=== PATIENT | male | born 1930 | race Caucasian/White ===

== ENCOUNTER → 2017-09-05 | Outpatient (CLI) | payer MEDICARE, OTHER ==
[~2017-09-05] MED LIST: ACET325 PO; ACET325UDC; ACET500 PO; ALBU90OI INH; ASPI325 PO; ASPI81CH PO; Alavert D-12 A1 EACH PO; BENEFIBER1 EACH PO; BUPR150ER PO; CETI5 PO; CHOL10002 PO; CLOP75 PO; Calcium 1,2001 EACH PO; DONE5 PO; ESCI10 PO; FAMO10 PO; FERR325 PO; FIBE4P PO; FINA5 PO; FOLI1 PO; Flonase 0.05% N16 GM; Glucosamine 1,1 EACH PO; HYDR1TAB94 PO; Hair, Skin & N1 EACH PO; Keflex500 MG PO; LAVAP17G PO; LAXA CLEAR1530 GM PO; LISI5 PO; MEMA5TAB PO; METO25ER PO; MULVIT PO; NAPR220 PO; Norco 10-325 T1 EACH PO; OMEP20ER PO; OXYACE5T PO; PANT40 PO; PROBIOTIC1 EAC1 PO; ROSU5 PO; SENN187 PO; TAMS.4ER; TAMS.4ER PO; VENL75; VIIBRYD40 MG PO; Zithromax250 MG PO; Zofran Odt4 MG SL
[2017-09-05 11:03] LABS: Bilirubin, Urine Neg (Neg); Blood, Urine 2+ (Neg); Glucose Qualitative, Urine Neg (Neg); Ketones, Urine Neg (Neg); Leukocyte Esterase, Urine 3+ (Neg); Nitrite, Urine Neg (Neg); Protein, Urine 1+ (Neg); Source, Urine Clean Catch; Urobilinogen, Urine NORM (Normal)
[2017-09-05 12:13] LABS: Appearance, Urine Cloudy (Clear); Color, Urine Yellow (P-Yellow)
[2017-09-05 12:17] LABS: White Blood Cells, Urine TNTC /hpf (0-5)
[2017-09-05 12:18] LABS: Bacteria Many /hpf; Other Crystals Many /hpf; Renal Epithelial Rare /hpf (0-Rare); Squamous Epithelial Cells Not Seen /hpf (Few)
== END | disposition home or self-care (01) ==
LOC: LAB 10:44 → LAB SHORT 10:44
PROVIDERS: Internal Medicine
DX: N39.0 Urinary tract infection, site not specified (principal)
CPT/HCPCS: 81001; 87077; 87086; 87186

== ENCOUNTER → 2017-09-20 | Outpatient (CLI) | payer MEDICARE, OTHER ==
[2017-09-20 12:49] LABS: Source, Urine Catheter
[2017-09-20 13:03] LABS: Appearance, Urine Clear (Clear); Bilirubin, Urine Neg (Neg); Blood, Urine 1+ (Neg); Color, Urine Yellow (P-Yellow); Glucose Qualitative, Urine Neg (Neg); Ketones, Urine Neg (Neg); Leukocyte Esterase, Urine Neg (Neg); Nitrite, Urine Neg (Neg); Protein, Urine Neg (Neg); Urobilinogen, Urine NORM (Normal)
[2017-09-20 15:37] LABS: Bacteria Few /hpf; Squamous Epithelial Cells Few /hpf (Few)
== END ==
LOC: LAB 12:47 → LAB SHORT 12:47
PROVIDERS: Internal Medicine
DX: N39.0 Urinary tract infection, site not specified (principal)
CPT/HCPCS: 81001; 87086

== ENCOUNTER → 2017-10-20 | Outpatient (CLI) | payer MEDICARE, OTHER ==
[2017-10-22 10:29] LABS: Source, Urine Clean Catch
[2017-10-22 10:46] LABS: Bilirubin, Urine Neg (Neg); Blood, Urine 3+ (Neg); Glucose Qualitative, Urine Neg (Neg); Ketones, Urine Neg (Neg); Leukocyte Esterase, Urine 3+ (Neg); Nitrite, Urine Neg (Neg); Protein, Urine 2+ (Neg); Specific Gravity, Urine 1.015 (1.003-1.022); Urobilinogen, Urine NORM (Normal)
[2017-10-22 11:27] LABS: Appearance, Urine Turbid (Clear); Color, Urine Yellow (P-Yellow)
[2017-10-22 11:28] LABS: Triple Phosphate Crystals Mod /hpf
[2017-10-22 11:29] LABS: White Blood Cells, Urine 50-100 /hpf (0-5)
[2017-10-22 11:30] LABS: Amorphous Light (0-Heavy); Bacteria Rare /hpf; Squamous Epithelial Cells Few /hpf (Few)
== END ==
LOC: LAB 10:27 → LAB SHORT 10:27
PROVIDERS: Internal Medicine
DX: N39.0 Urinary tract infection, site not specified (principal)
CPT/HCPCS: 81001; 87077; 87086; 87186

== ENCOUNTER → 2017-12-06 | Outpatient (CLI) | payer MEDICARE, OTHER ==
[2017-12-06 11:39] LABS: Source, Urine Clean Catch
[2017-12-06 12:38] LABS: Bilirubin, Urine Neg (Neg); Blood, Urine 2+ (Neg); Glucose Qualitative, Urine Neg (Neg); Ketones, Urine Neg (Neg); Leukocyte Esterase, Urine 3+ (Neg); Nitrite, Urine Pos (Neg); Protein, Urine 1+ (Neg); Urobilinogen, Urine NORM (Normal); pH, Urine 6.5 (5.0-8.0)
[2017-12-06 12:56] LABS: Appearance, Urine Hazy (Clear); Color, Urine Yellow (P-Yellow)
[2017-12-06 12:57] LABS: Squamous Epithelial Cells Few /hpf (Few); White Blood Cells, Urine TNTC /hpf (0-5)
[2017-12-06 12:58] LABS: Bacteria Many /hpf
== END | disposition home or self-care (01) ==
LOC: LAB SHORT 11:37 → LAB 11:37
PROVIDERS: Internal Medicine
DX: N39.0 Urinary tract infection, site not specified (principal)
CPT/HCPCS: 81001; 87077; 87086; 87186

== ENCOUNTER 2018-08-12 11:54 | Emergency (ER) | payer MEDICARE, OTHER ==
[~2018-08-12] VITALS: Ht 177.8 cm; Wt 72.6 kg
[~2018-08-12 11:54] MED LIST changes: +Budeprion Xl300 MG PO; +Cranberry500 MG PO; +DOCU100 PO; +DONE10 PO; +Pedi-Dri 100,0060 GM TOP; +[UNRECOGNIZED DRUG - CODE] PO; +[UNRECOGNIZED DRUG - CODE] PO; +[UNRECOGNIZED DRUG - CODE] PO; +[UNRECOGNIZED DRUG - CODE] PO; +[UNRECOGNIZED DRUG - CODE] PO; +[UNRECOGNIZED DRUG - CODE] PO
[2018-08-12] MEDS ORDERED: Fleet Bisa10 MG/30 M RC (12:12)
[2018-08-12] MEDS ORDERED: Lisinopril2.5 MG (12:12)
[2018-08-12] MEDS ORDERED: BISA10S PR (12:12)
[2018-08-12] MEDS ORDERED: MYLANTA (12:13)
[2018-08-12] MEDS ORDERED: Milk Of Ma400 MG/5 M PO (12:13)
[2018-08-12] MEDS ORDERED: PINK BISMU PO (12:14)
[2018-08-12] MEDS ORDERED: HYDR1TAB94 PO (14:54)
[2018-08-14] MEDS ORDERED: HYDR1TAB94 PO (20:56)
== END 2018-08-12 15:14 | disposition home or self-care (01) ==
LOC: ER 11:54
DX: S20.212A Contusion of left front wall of thorax, initial encounter (principal); F32.9 Major depressive disorder, single episode, unspecified; F03.90 Unspecified dementia, unspecified severity, without behavioral disturbance, psychotic disturbance, mood disturbance, and anxiety; I10 Essential (primary) hypertension; E78.00 Pure hypercholesterolemia, unspecified; Z79.899 Other long term (current) drug therapy; Z79.82 Long term (current) use of aspirin; Z79.02 Long term (current) use of antithrombotics/antiplatelets; Z87.891 Personal history of nicotine dependence; W05.0XXA Fall from non-moving wheelchair, initial encounter
CPT/HCPCS: 36415; 71046; 93005; 93010; 99284-25

== ENCOUNTER → 2018-08-30 | Outpatient (CLI) | payer MEDICARE, OTHER ==
[~2018-08-30] MED LIST changes: +BISA10S PR; +Fleet Bisa10 MG/30 M RC; +Lisinopril2.5 MG; +MYLANTA; +Milk Of Ma400 MG/5 M PO; +PINK BISMU PO
[2018-08-30 12:05] LABS: Bilirubin, Urine Neg (Neg); Blood, Urine 3+ (Neg); Glucose Qualitative, Urine Neg (Neg); Ketones, Urine Neg (Neg); Leukocyte Esterase, Urine 3+ (Neg); Nitrite, Urine Neg (Neg); Protein, Urine 2+ (Neg); Urobilinogen, Urine NORM (Normal)
[2018-08-30 12:37] LABS: Appearance, Urine Cloudy (Clear); Color, Urine Yellow (P-Yellow)
[2018-08-30 12:38] LABS: Bacteria Many /hpf; Squamous Epithelial Cells Few /hpf (Few); White Blood Cells, Urine TNTC /hpf (0-5)
== END | disposition home or self-care (01) ==
LOC: LAB 11:40 → LAB SHORT 11:40
PROVIDERS: Internal Medicine
DX: N39.0 Urinary tract infection, site not specified (principal)
CPT/HCPCS: 81001; 87077; 87086; 87186

== ENCOUNTER → 2018-09-09 | Outpatient (CLI) | payer MEDICARE, OTHER ==
[2018-09-10 12:16] LABS: Bilirubin, Urine Neg (Neg); Blood, Urine 1+ (Neg); Glucose Qualitative, Urine Neg (Neg); Ketones, Urine Neg (Neg); Leukocyte Esterase, Urine 3+ (Neg); Nitrite, Urine Neg (Neg); Protein, Urine 1+ (Neg); Specific Gravity, Urine 1.025 (1.003-1.022); Urobilinogen, Urine NORM (Normal)
[2018-09-10 13:19] LABS: Appearance, Urine Clear (Clear); Color, Urine Yellow (P-Yellow)
[2018-09-10 13:22] LABS: Bacteria Not Seen /hpf; Calcium Oxalate Crystals Few /hpf; Red Blood Cells, Urine 0-2 /hpf (0-2); Squamous Epithelial Cells Few /hpf (Few)
== END | disposition home or self-care (01) ==
LOC: LAB SHORT 20:00 → LAB 20:00
PROVIDERS: Internal Medicine
DX: N39.0 Urinary tract infection, site not specified (principal)
CPT/HCPCS: 81001

== ENCOUNTER 2018-10-18 21:22 | Inpatient (IN) | payer MEDICARE, OTHER ==
[~2018-10-18] VITALS: Ht 177.8 cm; Wt 90.1 kg
[~2018-10-18 21:22] MED LIST changes: -ACET325 PO; +Antacid Maximu355 ML PO; -Lisinopril2.5 MG; +Lisinopril2.5 MG PO; -MYLANTA
[2018-10-18 22:17] LABS: BASOPHILS ABSOLUTE AUTO 0.03 K/mm3 (0.00-0.23); BASOPHILS PERCENT AUTO 0 % (0-2); EOSINOPHILS ABSOLUTE AUTO 0.38 K/mm3 (0.00-0.68); EOSINOPHILS PERCENT AUTO 3 % (0-6); Hematocrit 43.1 % (37.0-53.0); Hemoglobin 13.9 g/dL (13.5-17.5); IMMATURE GRAN ABSOLUTE AUTO 0.05 K/mm3 (0.00-0.10); IMMATURE GRAN PERCENT AUTO 0 % (0-1); LYMPHOCYTES ABSOLUTE AUTO 1.95 K/mm3 (0.84-5.20); LYMPHOCYTES PERCENT AUTO 15 % (21-46); MONOCYTES PERCENT AUTO 10 % (4-13); Mean Corpuscular HGB 29.6 pg (26.0-34.0); Mean Corpuscular HGB Conc 32.3 g/dL (31.5-36.5); Mean Corpuscular Volume 92 fL (80-100); Mean Platelet Volume 10.3 fL (9.1-12.4); NEUTROPHILS ABSOLUTE AUTO 9.21 K/mm3 (1.96-9.15); NEUTROPHILS PERCENT AUTO 71 % (41-73); Platelet Count 155 K/mm3 (150-400); RDW Coefficient Variation 14.4 % (11.7-14.2); RDW Standard Deviation 49.3 fL (35.1-46.3); White Blood Cell Count 12.92 K/mm3 (4.00-11.30)
[2018-10-18 22:31] LABS: Alanine Aminotransfer (ALT/SGP 30 U/L (12-78); Albumin, Blood 3.6 g/dL (3.4-5.0); Alk Phos 80 U/L (50-136); Anion Gap 8 mmol/L (6-16); Aspartate Aminotrans (AST/SGOT 26 U/L (12-37); Blood Urea Nitrogen 21 mg/dL (8-24); Bun/Creatinine Ratio 21.1 (12.0-20.0); CO2, Blood 27 mmol/L (21-32); Calcium, Blood 8.8 mg/dL (8.5-10.1); Chloride, Blood 108 mmol/L (98-108); Globulin, Blood 3.7 g/dL (2.2-4.0); Glomerular Filtration Rate >60 (60-); Glucose, Blood 115 mg/dL (70-99); Sodium, Blood 143 mmol/L (136-145); Total Protein, Blood 7.3 g/dL (6.4-8.2)
--- NOTE | 2018-10-19 03:42 | NUR ---
0221 PT ADMITTED TO 303 PER STRETCHER FROM ER, ORIENTED TO ROOM, UNABLE TO COMPLETE HOME MEDS RECONCILITATION NO FAMILY MEMBERS ARE PRESENT. PT HAS DEMENTIA. PTS BED ALARM APPLIED, BED LOW POSITION, CALL LIGHT AT SIDE.
--- NOTE | 2018-10-19 05:03 | NUR ---
SHIFT SUMMARY: 88 Y/O MALE RESTED COMFORTABLY ALL SHIFT. PT IS ALERT AND ORIENTED X1, ABLE TO FOLLOW SIMPLE VERBAL COMMANDS. PT DENIES PAIN OR NAUSEA. PTS BED ALARM ACTIVATED, BED LOW POSITION WITH CALL LIGHT AT SIDE.
[2018-10-19 11:07] LABS: Hematocrit 40.3 % (37.0-53.0); Mean Corpuscular HGB 29.5 pg (26.0-34.0); Mean Corpuscular HGB Conc 32.3 g/dL (31.5-36.5); Mean Corpuscular Volume 91 fL (80-100); Mean Platelet Volume 10.1 fL (9.1-12.4); Platelet Count 137 K/mm3 (150-400); RDW Coefficient Variation 14.4 % (11.7-14.2); RDW Standard Deviation 48.5 fL (35.1-46.3); Red Blood Cell Count 4.41 M/mm3 (4.30-5.90); White Blood Cell Count 10.23 K/mm3 (4.00-11.30)
[2018-10-19 11:28] LABS: Alanine Aminotransfer (ALT/SGP 23 U/L (12-78); Albumin/Globulin Ratio 0.8 (0.8-1.8); Alk Phos 71 U/L (50-136); Anion Gap 6 mmol/L (6-16); Aspartate Aminotrans (AST/SGOT 18 U/L (12-37); Bilirubin, Total 0.6 mg/dL (0.1-1.0); Blood Urea Nitrogen 17 mg/dL (8-24); Bun/Creatinine Ratio 19.6 (12.0-20.0); CO2, Blood 28 mmol/L (21-32); Calcium, Blood 8.4 mg/dL (8.5-10.1); Chloride, Blood 108 mmol/L (98-108); Creatinine, Blood 0.87 mg/dL (0.60-1.20); Globulin, Blood 3.6 g/dL (2.2-4.0); Glomerular Filtration Rate >60 (60-); Glucose, Blood 132 mg/dL (70-99); Sodium, Blood 142 mmol/L (136-145); Total Protein, Blood 6.6 g/dL (6.4-8.2)
--- NOTE | 2018-10-19 17:58 | NUR ---
NO ACUTE CHANGES THIS SHIFT. AT BEDSIDE. PATIENT WAS TO DC TODAY BUT [facility] DOES NOT DO WEEKEND ADMISSIONS.
--- NOTE | 2018-10-20 04:40 | NUR ---
SHIFT SUMMARY: 88 Y/O MALE RESTED COMFORTABLY ALL SHIFT. PT IS ALERT AND ORIENTED X 1 AND ABLE TO FOLLOW VERY SIMPLE VERBAL COMMANDS. PT HAD NO INCIDENTS OF ATTEMPTING CLIMB OOB AND LET STAFF ASSIST WITH ALL ADLS. PT INCONTINENT VIA ATTENDS DIAPERS. PT TOOK ALL MEDICATIONS ONE PILL AT TIME AND SWALLOWED WITHOUT ISSUES. PTS BED ALARM ACTIVATED, BED LOW POSITION, CALL LIGHT AT SIDE.
--- NOTE | 2018-10-20 06:19 | NUR ---
PT NOTED AT TIMES DURING SHIFT, HE 1/2 CLIMBED OOB AND VOICING THAT HE IS THIRSTY. THIS NURSE PROVIDED GLASS OF ORANGE JUICE ON ICE. PTS BED ALARM INTACT.
[2018-10-20 08:46] LABS: Adenovirus Not Detected (NOT DETECT); Bordetella pertussis Not Detected (NOT DETECT); Chlamydophila pneumoniae Not Detected (NOT DETECT); Coronavirus 229E Not Detected (NOT DETECT); Coronavirus HKU1 Not Detected (NOT DETECT); Coronavirus NL63 Not Detected (NOT DETECT); Coronavirus OC43 Not Detected (NOT DETECT); Human Metapneumovirus Not Detected (NOT DETECT); Human Rhinovirus/Enterovirus Not Detected (NOT DETECT); Influenza A Not Detected (NOT DETECT); Influenza A/2009-H1 Not Detected (NOT DETECT); Influenza A/H1 Not Detected (NOT DETECT); Influenza A/H3 Not Detected (NOT DETECT); Influenza B Not Detected (NOT DETECT); Mycoplasma pneumoniae Not Detected (NOT DETECT); Parainfluenza Virus 1 Not Detected (NOT DETECT); Parainfluenza Virus 2 Not Detected (NOT DETECT); Parainfluenza Virus 3 Not Detected (NOT DETECT); Parainfluenza Virus 4 Not Detected (NOT DETECT); Respiratory Syncytial Virus Not Detected (NOT DETECT)
--- NOTE | 2018-10-20 17:57 | NUR ---
NO ACUTE CHANGES TO PATIENT. WAS AT BEDSIDE AND TOOK PATIENT FOR A WALK AROUND TODAY . HE REMAINS CONFUSED AT BASELINE BUT IS PLEASANT AND COOPERATIVE WITH CARES. NO COMPLAINTS OF PAIN, SOB, NV. PATIENT HAS BEEN UP IN CHAIR WHICH HE SEEMS TO ENJOY.
--- NOTE | 2018-10-20 23:16 | NUR ---
2145 PT INCREASINGLY AGITATED AND ATTEMPTING CLIMB OOB TONIGHT, UNABLE TO FOLLOW ANY REDIRECTIONS FROM STAFF. DR FLOREZ NOTIFIED WITH ORDERS TO GIVE ATIVAN 0.5MG IVP X 1 AND MAY REPEAT X 1 IN 30 MINUTES IF NEEDED. 2150 ATIVAN 0.5 MG IVP GIVEN. PT NON COMBATIVE AT MOMENT, STILL RAISING VOICE AND ATTEMPTING CLIMB OOB. 2220 ATIVAN 05MG IVP GIVEN FOR SAME BEHAVIOR. 2245 PT RESTING CALMLY IN BED WITH NO ISSUES NOTED. BED ALARM APPLIED.
--- NOTE | 2018-10-21 04:03 | NUR ---
SHIFT SUMMARY: 88 Y/O MALE HAD BRIEF PERIOD AGITATION AT BEGINNING OF SHIFT WITH ATIVAN 0.5MG IVP GIVEN WITH RELIEF FELT. PTS STOOL NOTED TO HAVE SLIGHT ODOR AND YELLOW/RED COLOR, LOOSE LIKE C-DIFF (NOT ENOUGH STOOL FOR LAB SAMPLE). THIS NURSE WILL PASS INFO INTO DAY SHIFT NURSE REGARDING THIS ISSUE. PT ALERT AND ORIENTED X 1, REQUIRED ALOT OF REDIRECTION BY STAFF AT TIMES WITH BEHAVIOR. PT DENIES PAIN OR NAUSEA. PTS BED ALARM APPLIED, BED LOW POSITION, CALL LIGHT AT SIDE.
--- NOTE | 2018-10-21 06:18 | NUR ---
PT HAD LARGE AMOUNT RED/GREEN FOUL ODORED, LOOSE STOOL (SMELLS OF C-DIFF). ORDER OBTAINED VIA Paulie MAR RN AND SAMPLE SENT OFF TO LAB BE TESTED FOR C-DIFF.
--- NOTE | 2018-10-21 08:00 | NUR ---
PT PLEASANT COOP A/O TO SELF AND FAM. DENIES PIAN. H/R REG, NO MURMER NOTED. PER TELEA; NSR AT 77 WITH BBB. LUNGS LIGHTLY COARSE AND LIGHTLY WHEEZY T/O. ON R/A. RESP EASY UNLABORED. ON R.A/ BT X4 LAST BM TODAY. RED LIGHTLY EXCORIATED BOTTOM AREA. CREAM APPLIED. DIARRHEA NOTED. TESTING SHOWS CDIF NEG. VOIDS INCONT IN ATTENDS. BED IN LOW POSITION, CALL LITE IN REACH, BED ALARM ON FOR SAFETY
[2018-10-21] MEDS ORDERED: PROBIOTIC GOLD1 EACH PO (12:16)
[2018-10-21] MEDS ORDERED: Anti-Diarrheal2 MG PO (12:17)
[2018-10-21] MEDS ORDERED: LEVO750 PO (12:18)
--- NOTE | 2018-10-21 13:22 | NUR ---
Per admit trigger, I met with Mr. Siegel and his to offer prayer and spiritual support. Both express a deep fidencio in a loving God and were appreciative of prayer. Mr. Siegel is being discharged soon. No fears or concerns presented.
--- NOTE | 2018-10-21 16:13 | NUR ---
DISCHARGE REVIEWED WITH . PT GOING TO [facility]. IV PULLED INTACT. TELE REMOVED. [facility] PICKED UP AT 16:18 REPORT CALLED TO HILLARY LUCAS. [facility]
== END 2018-10-21 16:33 | disposition home or self-care (01) | DRG 189 ==
LOC: ER 21:22 → MEDS 10-19 00:10 → ENPENDDIS 10-21 10:33 → MEDS 10-21 14:48
PROVIDERS: Emergency Medicine; ADMIT Internal Medicine
DX: J96.01 Acute respiratory failure with hypoxia (principal); J20.9 Acute bronchitis, unspecified; F03.90 Unspecified dementia, unspecified severity, without behavioral disturbance, psychotic disturbance, mood disturbance, and anxiety; I25.10 Atherosclerotic heart disease of native coronary artery without angina pectoris; N40.0 Benign prostatic hyperplasia without lower urinary tract symptoms; E78.5 Hyperlipidemia, unspecified; F32.9 Major depressive disorder, single episode, unspecified; E78.00 Pure hypercholesterolemia, unspecified; I25.2 Old myocardial infarction; I11.0 Hypertensive heart disease with heart failure; I50.9 Heart failure, unspecified
CPT/HCPCS: 36415; 71046; 80053; 82947; 84145; 85025; 85027; 87081; 87486; 87493; 87581; 87633; 87798; 94640; 94760; 96365; 96372-59; 96375; 99285-25; J0456; J0696; J1650; J1956; J2060; J7050

== ENCOUNTER → 2018-11-27 | Outpatient (CLI) | payer MEDICARE, OTHER ==
[~2018-11-27] MED LIST changes: +Anti-Diarrheal2 MG PO; +LEVO750 PO; +PROBIOTIC GOLD1 EACH PO
[2018-11-27 11:46] LABS: Appearance, Urine Cloudy (Clear); Bilirubin, Urine Neg (Neg); Blood, Urine 3+ (Neg); Color, Urine Yellow (P-Yellow); Glucose Qualitative, Urine Neg (Neg); Ketones, Urine Neg (Neg); Leukocyte Esterase, Urine 3+ (Neg); Nitrite, Urine Pos (Neg); Protein, Urine 2+ (Neg); Urobilinogen, Urine NORM (Normal)
[2018-11-27 12:25] LABS: Bacteria Many /hpf; Red Blood Cells, Urine TNTC /hpf (0-2); Squamous Epithelial Cells Few /hpf (Few); White Blood Cells, Urine TNTC /hpf (0-5)
== END | disposition home or self-care (01) ==
LOC: LAB 11:18 → LAB SHORT 11:18
PROVIDERS: Internal Medicine
DX: N39.0 Urinary tract infection, site not specified (principal)
CPT/HCPCS: 81001; 87077; 87086; 87147; 87186

== ENCOUNTER → 2018-12-09 | Outpatient (CLI) | payer MEDICARE, OTHER ==
[2018-12-09 14:13] LABS: Source, Urine Clean Catch
[2018-12-09 14:25] LABS: Bilirubin, Urine Neg (Neg); Blood, Urine 1+ (Neg); Glucose Qualitative, Urine Neg (Neg); Ketones, Urine Neg (Neg); Leukocyte Esterase, Urine 2+ (Neg); Nitrite, Urine Neg (Neg); Protein, Urine Neg (Neg); Specific Gravity, Urine 1.025 (1.003-1.022); Urobilinogen, Urine NORM (Normal)
[2018-12-09 14:32] LABS: Color, Urine Yellow (P-Yellow)
[2018-12-09 14:33] LABS: White Blood Cells, Urine 25-50 /hpf (0-5)
[2018-12-09 14:34] LABS: Bacteria Few /hpf; Squamous Epithelial Cells Few /hpf (Few)
[2018-12-09 14:35] LABS: Appearance, Urine Clear (Clear)
== END | disposition home or self-care (01) ==
LOC: LAB 11:35 → LAB SHORT 11:35
PROVIDERS: Internal Medicine
DX: N39.0 Urinary tract infection, site not specified (principal)
CPT/HCPCS: 81001; 87086

== ENCOUNTER → 2019-01-22 | Outpatient (CLI) | payer MEDICARE, OTHER | END | disposition home or self-care (01) | LOC: LAB SHORT 14:51 → PLD 14:51 | DX: D48.5 Neoplasm of uncertain behavior of skin (principal) | CPT/HCPCS: 88305 ==